=== PATIENT | male | born 1985 | race Caucasian/White ===

== ENCOUNTER 2018-04-30 12:52 | Emergency (ER) | payer OTHER ==
[2018-04-30 13:07] VITALS: BP 119/86
[2018-04-30] MEDS ORDERED: IBUPROFEN 800 MG TAB PO ONE (13:40)
--- NOTE | 2018-04-30 13:44 | EDPHY ---
H & P Time Seen by Provider: 04/30/18 13:09 HPI/ROS: CHIEF COMPLAINT: Low back pain HISTORY OF PRESENT ILLNESS: Patient states he was working last night at [employer] around 930 when he injured himself. He states he was moving some heavy 2x2 angle iron. He states he was bent over at the waist instead of using his knees when he was trying to move this iron. He states he felt a strain right away but no pop. He describes the pain is low back and sacral area right more than left. 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 This morning when he woke up the pain was quite a bit worse. He describes it 5 to 6/10. He states it was difficult to stand up straight and on the way over here the movement of the car cause pain as well. He describes it painful to sit but overall he feels slightly better this afternoon and he did this morning. He denies numbness, tingling in his legs. He has no saddle paresthesia. He has had no incontinence of bowel or bladder. He did not fall nor had direct trauma to the back. Contents of 10 point review of systems otherwise negative except for what is mentioned in HPI. General Appearance: Alert, no distress. Eyes: Pupils equal and round no pallor or injection. ENT, Mouth: Mucous membranes moist. Respiratory: There are no retractions, lungs are clear to auscultation. Cardiovascular: Regular rate and rhythm. Gastrointestinal: Abdomen is soft and nontender, no masses, bowel sounds normal. Neurological: Awake, alert, no clonus, normal reflexes bilaterally in the lower extremities. Numbness to groin. Skin: Warm and dry, no rashes. Musculoskeletal: Neck is supple nontender. Extremities are symmetrical, full range of motion, some tenderness to palpation to the paraspinal region in the L4-5 S1 area. Psychiatric: Patient is oriented X 3, there is no agitation. Medical/surgical history: No pertinent past medical or surgical history. Social history: Occasional tobacco, occasional alcohol, uses cannabis. Smoking Status: Current some day smoker Constitutional: Initial Vital Signs Temperature (C) 36.6 C 04/30/18 13:01 Heart Rate 91 04/30/18 13:01 Respiratory Rate 12 04/30/18 13:01 Blood Pressure 119/86 H 04/30/18 13:01 O2 Sat (%) 94 04/30/18 13:01 O2 Delivery Mode Room Air Allergies/Adverse Reactions: No Known Allergies Allergy (Unverified 08/20/15 13:43) Home Medications: Medication Instructions Recorded NK [No Known Home Meds] 08/20/15 Medical Decision Making Differential Diagnosis: Differential diagnosis includes but is not limited to low back strain, disc disease, cauda equina, muscle strain. After evaluation suspect soft tissue injury but no signs of significant disc disease. Neurologically intact with no indication for imaging at this time. Discussed activity as tolerated, ibuprofen , ice and follow-up with workman's compensation clinic prior to resumption of full activities at work. Stable for outpatient follow-up. Departure - Departure Clinical Impression: Low back strain Qualifiers: Encounter type: initial encounter Qualified Code(s): S39.012A - Strain of muscle, fascia and tendon of lower back, initial encounter Condition: Fair Instructions: Low Back Strain (ED) Additional Instructions: Use ibuprofen, 800 mg 3 times a day for the next several days scheduled. Add Tylenol for breakthrough pain. Activity as tolerated and no lifting at work until follow-up by workman's Comp Clinic. Ice can be quite helpful. Return to the emergency department if you develops any numbness, tingling, loss of bowel or bladder function. Referrals: NONE *PRIMARY CARE P,. [Primary Care Provider] - As per Instructions
== END 2018-04-30 14:05 | disposition home or self-care (01) ==
LOC: CED 12:52
DX: S39.012A Strain of muscle, fascia and tendon of lower back, initial encounter (principal); X50.0XXA Overexertion from strenuous movement or load, initial encounter; Y92.89 Other specified places as the place of occurrence of the external cause; Y99.0 Civilian activity done for income or pay; Y93.89 Activity, other specified
CPT/HCPCS: 99282-ER

== ENCOUNTER → 2018-05-20 | Outpatient (CLI) | payer OTHER | LOC: CIMAGING 10:18 | PROVIDERS: ATTEND Radiology Diagnostic Radiology | DX: Z13.89 Encounter for screening for other disorder (principal) | CPT/HCPCS: 70200-PO ==